=== PATIENT | female | born 1960 | race Caucasian/White ===

== ENCOUNTER 2017-10-28 19:09 | Inpatient (IN) | payer OTHER ==
[~2017-10-28] VITALS: Ht 154.9 cm; Wt 78.9 kg
[~2017-10-28 19:09] MED LIST: Z.0.ATENOLOL50 MG PO
[2017-10-28] MEDS ORDERED: SODIUM CHLORIDE 0.9% 1000ML 1,000 ML IV STA (19:22)
[2017-10-28] MEDS ORDERED: MORPHINE SULFATE 4 MG/ML SYR IV STA (19:22)
[2017-10-28] MEDS ORDERED: ONDANSETRON HCL INJ 2 MG/ML VIAL IV STA (19:22)
[2017-10-28] MEDS ORDERED: MORPHINE SULFATE 2 MG/ML SYR ONE (19:57)
[2017-10-28 19:59] LABS: BASOPHILS # (AUTO) 0.1 (0.0-0.1); BASOPHILS % 0.6 % (0.0-1.0); EOSINOPHILS # (AUTO) 0.1 (0.0-0.4); EOSINOPHILS % 0.4 % (0.0-6.0); HEMOGLOBIN 12.4 g/dL (12.0-16.0); LYMPHOCYTES # (AUTO) 1.5 (1.0-3.2); LYMPHOCYTES % 6.8 % (18.0-39.1); MEAN CORPUSCULAR HEMOGLOBIN 26.3 pg (28-32); MEAN CORPUSCULAR HGB CONC 33.5 g/dL (31-35); MEAN CORPUSCULAR VOLUME 78.6 fL (81-99); MONOCYTES # (AUTO) 1.8 (0.2-0.8); MONOCYTES % 8.3 % (4.4-11.3); NEUTROPHILS # (AUTO) 17.9 (2.1-6.9); NEUTROPHILS % 80.8 % (38.7-80.0); PLATELET COUNT 458 x10e3/uL (140-360); RED BLOOD COUNT 4.71 x10e6/uL (3.6-5.1)
[2017-10-28 20:00] LABS: BILIRUBIN,URINE 1+ (NEGATIVE); KETONES,URINE 1+ (NEGATIVE); LEUKOCYTE ESTERASE ,URINE 1+ (NEGATIVE); URINE UROBILINOGEN 4 mg/dL (0.2 - 1)
[2017-10-28 20:02] LABS: CLARITY,URINE SL CLOUDY (CLEAR); COLOR,URINE AMBER (YELLOW); NITRITE,URINE NEGATIVE (NEGATIVE); PROTEIN,URINE DIPSTICK 2+ (NEGATIVE)
[2017-10-28 20:13] LABS: BACTERIA,URINE MODERATE /HPF; EPITHELIAL CELLS,URINE FEW /LPF
[2017-10-28 20:16] LABS: ALANINE AMINOTRANSFERASE 11 IU/L (0-55); ALBUMIN/GLOBULIN RATIO 0.8 (0.8-2.0); ALKALINE PHOSPHATASE 94 IU/L (40-150); ANION GAP 15.4 mmol/L (8-16); BLOOD UREA NITROGEN 10 mg/dL (7-26); BUN/CREATININE RATIO 14 (6-25); CALCIUM 9.5 mg/dL (8.4-10.2); CARBON DIOXIDE 24 mmol/L (22-29); CHLORIDE 98 mmol/L (98-107); CREATININE, SERUM 0.73 mg/dL (0.57-1.11); EST GLOMERULAR FILTRATION RATE > 60 ML/MIN (60-); GLUCOSE 150 mg/dL (74-118); LIPASE 62 U/L (8-78); SODIUM 135 mmol/L (136-145)
[2017-10-28 20:18] LABS: POTASSIUM 2.4 mmol/L (3.5-5.1)
[2017-10-28] MEDS ORDERED: LEVOFLOXACIN 500MG/D5W 100ML 100 ML IV SCH (20:27)
[2017-10-28] MEDS ORDERED: METRONIDAZOLE 500MG/NS 100ML 100 ML IV STA (20:27)
--- NOTE | 2017-10-28 21:06 | Diagnostic Imaging Report ---
EXAM: CT Abdomen and Pelvis WITH contrast INDICATION: Abdominal pain. Fever. Diarrhea. COMPARISON: None. TECHNIQUE: Abdomen and pelvis were scanned utilizing a multidetector helical scanner from the lung base to the pubic symphysis after administration of IV contrast. Coronal and sagittal reformations were obtained. Routine protocol was performed. Scan was performed when during portal venous phase. IV CONTRAST: 100 mL of Isovue 370 ORAL CONTRAST: Water COMPLICATIONS: None RADIATION DOSE: Total DLP: 562.72 mGy*cm Estimated effective dose: (DLP x 0.015 x size factor) mSv CTDIvol has been reviewed. It is below the limits set by the Radiation Protocol Committee (RPC). FINDINGS: LINES and TUBES: None. LOWER THORAX: Unremarkable HEPATOBILIARY: 1.7 x 2.9 cm bilobed cyst in the segment 3 of the liver. No biliary ductal dilation. GALLBLADDER: There are cholecystectomy clips. SPLEEN: Mild splenomegaly measuring 14.1 cm in craniocaudad dimension. PANCREAS: No focal masses or ductal dilatation. ADRENALS: No adrenal nodules KIDNEYS/URETERS: Kidneys enhance symmetrically. No hydronephrosis. No cystic or solid mass lesions. No stones. GI TRACT: Winn colitis with wall thickening and pericolonic fat stranding worse in the transverse colon and ascending colon. Terminal ileum is spared. Questionable appendix is visualized and normal. PELVIC ORGANS/BLADDER: Bilateral tubal ligation clips. LYMPH NODES: No lymphadenopathy. VESSELS: Unremarkable. PERITONEUM / RETROPERITONEUM: Small amount of free fluid in the deep pelvis. BONES: Severe disc space narrowing at L5-S1. SOFT TISSUES: Unremarkable. IMPRESSION: 1. Pancolitis with sparing of the small bowel loops. This may be infectious versus inflammatory. 2. Mild splenomegaly. Signed by: Dr. Eddie Molina M.D. on 10/28/2017 9:03 PM
[2017-10-28] MEDS ORDERED: POTASSIUM CHLORIDE 20MEQ/100ML 100 ML IV SCH (21:12)
[2017-10-28 21:15] LABS: BAND NEUTROPHILS % (MANUAL) 3 %; EOSINOPHILS % (MANUAL) 1 % (0-7); HYPOCHROMASIA SLIGHT; LYMPHOCYTES % (MANUAL) 8 % (19-48); METAMYELOCYTES % (MANUAL) 1 % (0-0); MONOCYTES % (MANUAL) 8 % (3.4-9.0); MYELOCYTES % (MANUAL) 2 % (0-0); NEUTROPHILS % (MANUAL) 77 % (40-74); PLATELET ESTIMATE SLIGHTLY INCREASED; RBC MORPHOLOGY COMMENT NORMAL
[2017-10-28] MEDS ORDERED: ACETAMINOPHEN 1000 MG/100 ML IV PRN (21:15)
[2017-10-28] MEDS ORDERED: LEVOFLOXACIN 500MG/D5W 100ML IV SCH (21:15)
[2017-10-28] MEDS ORDERED: MORPHINE SULFATE 2 MG/ML SYR IV PRN (21:15)
[2017-10-28] MEDS ORDERED: SODIUM CHLORIDE 0.9% 50ML 50 ML ONE (21:35)
[2017-10-28] MEDS ORDERED: IOPAMIDOL 370 MG/ML 200 ML INFUS..BTL INJ ONE (21:35)
[2017-10-28] MEDS ORDERED: METRONIDAZOLE 500MG/NS 100ML 100 ML IV SCH (21:45)
[2017-10-28] MEDS ORDERED: KCL 20MEQ/.9 SOD CHL 1,000 ML IV ONE (21:52)
[2017-10-28] MEDS: POTASSIUM CHLORIDE 20 MEQ in SODIUM CHLORIDE 0.9% 1000ML 1,000 ML IV SCH (23:20)
--- OUTSIDE RECORDS SUMMARY | 2017-10-28 23:31 | XMS REPORT ---
Author Author [facility] Address Unknown Phone Unavailable Care Team Providers Care Stock Raiser Name Role Phone AMANDALISA Unavailable Unavailable Problems This patient has no known problems. Allergies, Adverse Reactions, Alerts This patient has no known allergies or adverse reactions. Medications This patient has no known medications. Results Test Description Test Time Test Comments Text Results Atomic Results Result Comments CT ABDOMEN/PELVIS W [place] [id number] Patient Name: MINDI FLORENTINO MR #: [id number] : 1960 Age/Sex: 56/F Req #: [id number] Adm Physician: Ordered by: LISA TORRES SASH STICKER Report #: [id number] Location: ER Room/Bed: Procedure: [id number] CT/CT ABDOMEN/PELVIS W Exam Date: 10/28/17 Exam Time: 2019 REPORT STATUS: Signed EXAM: CT Abdomen and Pelvis WITH contrast INDICATION: Abdominal pain. Fever. Diarrhea. COMPARISON: None. TECHNIQUE: Abdomen and pelvis were scanned utilizing a multidetector helical scanner from the lung base to the pubic symphysis after administration of IV contrast. Coronal and sagittal reformations were obtained. Routine protocol was performed. Scan was performed when during portal venous phase. IV CONTRAST: 100 mL of Isovue 370 ORAL CONTRAST: Water COMPLICATIONS: None RADIATION DOSE: Total DLP: 562.72 mGy*cm Estimated effective dose: (DLP x 0.015 x size factor) mSv CTDIvol has been reviewed. It is below the limits set by the Radiation Protocol Committee (RPC). FINDINGS: LINES and TUBES: None. LOWER THORAX: Unremarkable HEPATOBILIARY: 1.7 x 2.9 cm bilobed cyst in the segment 3 of the liver. No biliary ductal dilation. GALLBLADDER: There are cholecystectomy clips. SPLEEN: Mild splenomegaly measuring 14.1 cm in craniocaudad dimension. PANCREAS: No focal masses or ductal dilatation. ADRENALS: No adrenal nodules KIDNEYS/URETERS: Kidneys enhance symmetrically. No hydronephrosis. No cystic or solid mass lesions. No stones. GI TRACT: Winn colitis with wall thickening and pericolonic fat stranding worse in the transverse colon and ascending colon. Terminal ileum is spared. Questionable appendix is visualized and normal. PELVIC ORGANS/BLADDER: Bilateral tubal ligation clips. LYMPH NODES: No lymphadenopathy. VESSELS: Unremarkable. PERITONEUM / RETROPERITONEUM: Small amount of free fluid in the deep pelvis. BONES: Severe disc space narrowing at L5-S1. SOFT TISSUES: Unremarkable. IMPRESSION: 1. Pancolitis with sparing of the small bowel loops. This may be infectious versus inflammatory. 2. Mild splenomegaly. Signed by: Dr. Leatha Molina M.D. on 10/28/2017 9:03 PM Dictated By: LEATHA MOLINA MD 02 Transcribed By: NILDA on 10/28/172102 COPY TO: LISA TORRES NP
[2017-10-28] MEDS: LEVOFLOXACIN 500MG/D5W 100ML 100 ML IV SCH (23:32)
[2017-10-29] MEDS ORDERED: METRONIDAZOLE 500MG/NS 100ML 100 ML IV SCH
[2017-10-29] MEDS ORDERED: FENOFIBRATE145 MG PO (00:23)
[2017-10-29] MEDS ORDERED: BENTYL PO (00:23)
[2017-10-29] MEDS ORDERED: SERTRALINE HCL50 MG PO (00:23)
[2017-10-29] MEDS ORDERED: NITROFURANTOIN100 MG PO (00:23)
[2017-10-29] MEDS ORDERED: ULTRAM50 MG PO (00:23)
[2017-10-29] MEDS ORDERED: NORCO 10-325 T1 EACH PO (00:23)
[2017-10-29] MEDS ORDERED: HYDROXYZINE HCL25 MG PO (00:23)
[2017-10-29] MEDS ORDERED: NEXIUM20 MG PO (00:23)
[2017-10-29] MEDS ORDERED: METOPROLOL SUCC50 MG PO (00:23)
[2017-10-29] MEDS ORDERED: ZOLPIDEM TARTRA10 MG PO (00:23)
[2017-10-29] MEDS ORDERED: OXYBUTYNIN CHLOR5 MG PO (00:23)
[2017-10-29] MEDS ORDERED: BENTYL10 MG/1 ML IV (00:23)
[2017-10-29] MEDS ORDERED: CYMBALTA30 MG PO (00:23)
[2017-10-29] MEDS ORDERED: VITAMIN D1000 UNI1 PO (00:23)
[2017-10-29] MEDS ORDERED: LYRICA150 MG PO (00:23)
[2017-10-29] MEDS: IBUPROFEN 600 MG TAB PO PRN ×4 (00:32→22:10)
[2017-10-29] MEDS: METRONIDAZOLE 500MG/NS 100ML 100 ML IV SCH ×4 (00:32→23:01)
[2017-10-29] MEDS: HYDROMORPHONE 1MG/1ML INJ IV PRN ×5 (00:32→23:01)
[2017-10-29] MEDS: KCL 20MEQ/.9 SOD CHL 1,000 ML IV SCH ×3 (01:30→21:32)
[2017-10-29 05:49] LABS: BASOPHILS # (AUTO) 0.1 (0.0-0.1); BASOPHILS % 0.5 % (0.0-1.0); EOSINOPHILS # (AUTO) 0.3 (0.0-0.4); EOSINOPHILS % 1.5 % (0.0-6.0); HEMATOCRIT 30.9 % (34.2-44.1); HEMOGLOBIN 10.2 g/dL (12.0-16.0); LYMPHOCYTES # (AUTO) 1.9 (1.0-3.2); LYMPHOCYTES % 11.5 % (18.0-39.1); MEAN CORPUSCULAR HEMOGLOBIN 26.5 pg (28-32); MEAN CORPUSCULAR VOLUME 80.3 fL (81-99); MONOCYTES # (AUTO) 1.7 (0.2-0.8); MONOCYTES % 10.3 % (4.4-11.3); NEUTROPHILS % 71.4 % (38.7-80.0); PLATELET COUNT 311 x10e3/uL (140-360); RED BLOOD COUNT 3.85 x10e6/uL (3.6-5.1); RED CELL DISTRIBUTION WIDTH 14.2 % (11.7-14.4)
[2017-10-29 06:11] LABS: ALANINE AMINOTRANSFERASE 8 IU/L (0-55); ALBUMIN 2.3 g/dL (3.5-5.0); ALBUMIN/GLOBULIN RATIO 0.8 (0.8-2.0); ALKALINE PHOSPHATASE 69 IU/L (40-150); ANION GAP 11.6 mmol/L (8-16); BLOOD UREA NITROGEN 8 mg/dL (7-26); BUN/CREATININE RATIO 11 (6-25); CALCIUM 8.4 mg/dL (8.4-10.2); CARBON DIOXIDE 23 mmol/L (22-29); CHLORIDE 105 mmol/L (98-107); EST GLOMERULAR FILTRATION RATE > 60 ML/MIN (60-); GLUCOSE 99 mg/dL (74-118); SODIUM 137 mmol/L (136-145)
[2017-10-29 06:20] LABS: POTASSIUM 2.6 mmol/L (3.5-5.1)
[2017-10-29] MEDS ORDERED: POTASSIUM CHLORIDE 20MEQ/100ML 100 ML IV STA (06:20)
[2017-10-29] MEDS: POTASSIUM CHLORIDE 20 MEQ in SODIUM CHLORIDE 0.9% 1000ML 1,000 ML IV SCH (06:47)
[2017-10-29 08:45] VITALS: BP 177/81
[2017-10-29 10:06] VITALS: BP 177/81
[2017-10-29] MEDS: ONDANSETRON HCL INJ 2 MG/ML VIAL IV PRN ×3 (10:57→21:31)
[2017-10-29 11:28] VITALS: BP 189/90
[2017-10-29 11:39] LABS: BAND NEUTROPHILS % (MANUAL) 2 %; EOSINOPHILS % (MANUAL) 1 % (0-7); LYMPHOCYTES % (MANUAL) 21 % (19-48); MONOCYTES % (MANUAL) 5 % (3.4-9.0); MYELOCYTES % (MANUAL) 1 % (0-0); NEUTROPHILS % (MANUAL) 69 % (40-74); PLATELET ESTIMATE ADEQUATE; PLATELET MORPHOLOGY COMMENT NORMAL; RBC MORPHOLOGY COMMENT NORMAL
[2017-10-29] MEDS ORDERED: ACETAMINOPHEN 325 MG TAB PO PRN (12:00)
[2017-10-29] MEDS ORDERED: SODIUM CHLORIDE 0.9% 1000ML 1,000 ML IV ONE ×2 (12:13→12:15)
[2017-10-29] MEDS ORDERED: SODIUM CHLORIDE 0.9% 1000ML 1,000 ML ONE (12:27)
[2017-10-29] MEDS: METOPROLOL SUCCINATE 50 MG TAB XL PO SCH ×2 (12:33→16:53)
[2017-10-29] MEDS ORDERED: POTASSIUM CHLORIDE 20 MEQ TAB CR PO ONE (12:45)
[2017-10-29 16:00] VITALS: BP 194/88
[2017-10-29] MEDS: ENOXAPARIN SOD INJ 40 MG/0.4 ML SYR SC SCH (16:53)
[2017-10-29 20:00] VITALS: BP 199/112
[2017-10-29] MEDS: LEVOFLOXACIN 500MG/D5W 100ML 100 ML IV SCH (21:32)
[2017-10-29] MEDS ORDERED: METOPROLOL SUCCINATE 50 MG TAB XL PO ONE (21:45)
[2017-10-29] MEDS ORDERED: NIFEDIPINE CR 30 MG TAB PO ONE (22:15)
[2017-10-29] MEDS: NIFEDIPINE CR 30 MG TAB PO SCH (22:30)
[2017-10-30] VITALS: BP 165/71
[2017-10-30 04:00] VITALS: BP 146/66
[2017-10-30] MEDS: ONDANSETRON HCL INJ 2 MG/ML VIAL IV PRN ×4 (05:30→20:56)
[2017-10-30] MEDS: HYDROMORPHONE 1MG/1ML INJ IV PRN ×4 (05:30→20:55)
[2017-10-30] MEDS: KCL 20MEQ/.9 SOD CHL 1,000 ML IV SCH ×3 (05:56→20:54)
[2017-10-30] MEDS: METRONIDAZOLE 500MG/NS 100ML 100 ML IV SCH ×3 (07:32→23:30)
[2017-10-30 08:00] VITALS: BP 121/58
[2017-10-30 08:24] LABS: BASOPHILS # (AUTO) 0.1 (0.0-0.1); BASOPHILS % 0.3 % (0.0-1.0); EOSINOPHILS # (AUTO) 0.5 (0.0-0.4); EOSINOPHILS % 1.4 % (0.0-6.0); HEMOGLOBIN 11.7 g/dL (12.0-16.0); LYMPHOCYTES # (AUTO) 2.7 (1.0-3.2); MEAN CORPUSCULAR HEMOGLOBIN 26.2 pg (28-32); MEAN CORPUSCULAR HGB CONC 32.5 g/dL (31-35); MEAN CORPUSCULAR VOLUME 80.7 fL (81-99); MONOCYTES # (AUTO) 2.1 (0.2-0.8); MONOCYTES % 6.1 % (4.4-11.3); NEUTROPHILS # (AUTO) 27.2 (2.1-6.9); NEUTROPHILS % 80.8 % (38.7-80.0); PLATELET COUNT 485 x10e3/uL (140-360); RED BLOOD COUNT 4.46 x10e6/uL (3.6-5.1); RED CELL DISTRIBUTION WIDTH 14.6 % (11.7-14.4)
[2017-10-30 08:56] LABS: ANION GAP 14.6 mmol/L (8-16); BLOOD UREA NITROGEN 6 mg/dL (7-26); BUN/CREATININE RATIO 10 (6-25); CALCIUM 9.1 mg/dL (8.4-10.2); CARBON DIOXIDE 24 mmol/L (22-29); CHLORIDE 103 mmol/L (98-107); EST GLOMERULAR FILTRATION RATE > 60 ML/MIN (60-); GLUCOSE 92 mg/dL (74-118); MAGNESIUM 1.6 MG/DL (1.3-2.1); SODIUM 139 mmol/L (136-145)
[2017-10-30] MEDS: METOPROLOL SUCCINATE 50 MG TAB XL PO SCH ×2 (09:02→16:58)
[2017-10-30 09:32] LABS: POTASSIUM 2.6 mmol/L (3.5-5.1)
[2017-10-30] MEDS ORDERED: POTASSIUM CHLORIDE 20 MEQ TAB CR PO ONE ×2 (10:30→11:30)
[2017-10-30 12:00] VITALS: BP 131/58
[2017-10-30 13:47] LABS: BAND NEUTROPHILS % (MANUAL) 18 %; EOSINOPHILS % (MANUAL) 2 % (0-7); LYMPHOCYTES % (MANUAL) 14 % (19-48); MONOCYTES % (MANUAL) 3 % (3.4-9.0); NEUTROPHILS % (MANUAL) 63 % (40-74)
[2017-10-30 13:48] LABS: PLATELET ESTIMATE ADEQUATE; PLATELET MORPHOLOGY COMMENT NORMAL; RBC MORPHOLOGY COMMENT NORMAL
[2017-10-30 16:00] VITALS: BP 131/74
[2017-10-30] MEDS: ENOXAPARIN SOD INJ 40 MG/0.4 ML SYR SC SCH (16:58)
[2017-10-30 20:00] VITALS: BP 146/66
[2017-10-30] MEDS: NIFEDIPINE CR 30 MG TAB PO SCH (20:54)
[2017-10-30] MEDS: LEVOFLOXACIN 500MG/D5W 100ML 100 ML IV SCH (20:55)
--- NOTE | 2017-10-30 23:47 | Progress Note ---
DATE: October 30, 2017 PULMONARY MEDICINE PROGRESS NOTE This is coverage for Dr. Palm. SUBJECTIVE: Patient complained of having more diarrhea. Room air FiO2. She is on IV fluids 100 mL an hour with 20 mEq of potassium per liter in bag. She is still little bit weak. She has lower abdominal pain. Blood culture, still no growth today times 24 hours and urine culture, no growth today times 24 hours. White count still critical high and potassium critical low. REVIEW OF SYSTEMS: No bleeding, no headaches. OBJECTIVE: VITAL SIGNS: Afebrile, vital signs noted per electronic record. GENERAL: In no acute distress, alert and calm. HEENT: Normocephalic, atraumatic. NECK: Supple. Throat midline. LUNGS: Bilateral air entry, clear. CARDIOVASCULAR: S1, S2. No murmurs, rubs, or gallops. ABDOMEN: Soft, but she is mildly in discomfort throughout the abdomen to touch. INTEGUMENT: No purpura, no rash. EXTREMITIES: No clubbing, no cyanosis, there is no edema. LABS: 2.6 potassium, 0.6 creatinine. 33 white count, 36 hematocrit, 485,000 platelets. IMPRESSION AND PLAN: 1. Pancolitis per computerized tomography scan. Concern for Clostridium difficile infection. 2. Mild splenomegaly. 3. Gastroesophageal reflux disease. 4. Irritable bowel syndrome. 5. Depression, fibromyalgia. 6. Hypertension. 7. Chronic back pain. 8. Critical hypokalemia. 9. Severe leukocytosis. 10. Recurrent emesis, slightly improved. Increase diet slightly to full liquids. Continue intravenous fluid supplement. Await Clostridium difficile assay. Continue antibiotics including Clostridium difficile coverage for now. Deep venous thrombosis prophylaxis on. Aggressively give potassium. Job#: [id number]
[2017-10-31] VITALS (7 sets, daily range): BP systolic 125–158; BP diastolic 65–69
[2017-10-31] MEDS: VANCOMYCIN 250MG/5ML ORAL SOLN PO SCH ×4 (00:38→18:19)
[2017-10-31] MEDS: KCL 20MEQ/.9 SOD CHL 1,000 ML IV SCH ×2 (05:44→14:12)
[2017-10-31] MEDS: ONDANSETRON HCL INJ 2 MG/ML VIAL IV PRN ×3 (05:50→18:19)
[2017-10-31] MEDS: HYDROMORPHONE 1MG/1ML INJ IV PRN ×3 (05:50→21:59)
[2017-10-31 06:59] LABS: BASOPHILS # (AUTO) 0.1 (0.0-0.1); BASOPHILS % 0.7 % (0.0-1.0); EOSINOPHILS # (AUTO) 0.3 (0.0-0.4); EOSINOPHILS % 1.7 % (0.0-6.0); HEMATOCRIT 28.8 % (34.2-44.1); HEMOGLOBIN 9.4 g/dL (12.0-16.0); LYMPHOCYTES # (AUTO) 1.8 (1.0-3.2); LYMPHOCYTES % 9.4 % (18.0-39.1); MEAN CORPUSCULAR HEMOGLOBIN 26.6 pg (28-32); MEAN CORPUSCULAR HGB CONC 32.6 g/dL (31-35); MEAN CORPUSCULAR VOLUME 81.6 fL (81-99); MONOCYTES # (AUTO) 1.1 (0.2-0.8); MONOCYTES % 5.5 % (4.4-11.3); NEUTROPHILS # (AUTO) 14.8 (2.1-6.9); NEUTROPHILS % 76.6 % (38.7-80.0); PLATELET COUNT 376 x10e3/uL (140-360); RED BLOOD COUNT 3.53 x10e6/uL (3.6-5.1); RED CELL DISTRIBUTION WIDTH 14.6 % (11.7-14.4)
[2017-10-31 07:40] LABS: ALANINE AMINOTRANSFERASE 10 IU/L (0-55); ALBUMIN 2.3 g/dL (3.5-5.0); ALBUMIN/GLOBULIN RATIO 0.8 (0.8-2.0); ALKALINE PHOSPHATASE 80 IU/L (40-150); ANION GAP 12.1 mmol/L (8-16); BLOOD UREA NITROGEN 6 mg/dL (7-26); BUN/CREATININE RATIO 10 (6-25); CALCIUM 8.5 mg/dL (8.4-10.2); CARBON DIOXIDE 23 mmol/L (22-29); CHLORIDE 108 mmol/L (98-107); CREATININE, SERUM 0.59 mg/dL (0.57-1.11); EST GLOMERULAR FILTRATION RATE > 60 ML/MIN (60-); GLUCOSE 108 mg/dL (74-118); MAGNESIUM 1.5 MG/DL (1.3-2.1); POTASSIUM 3.1 mmol/L (3.5-5.1); SODIUM 140 mmol/L (136-145)
[2017-10-31] MEDS: METRONIDAZOLE 500MG/NS 100ML 100 ML IV SCH ×3 (07:50→23:00)
[2017-10-31] MEDS: METOPROLOL SUCCINATE 50 MG TAB XL PO SCH ×2 (09:19→17:26)
[2017-10-31 14:15] LABS: ANISOCYTOSIS SLIGHT; HYPOCHROMASIA SLIGHT; LYMPHOCYTES % (MANUAL) 11 % (19-48); MONOCYTES % (MANUAL) 9 % (3.4-9.0); NEUTROPHILS % (MANUAL) 78 % (40-74); PROMYELOCYTES % (MANUAL) 1 % (0-0)
[2017-10-31 14:16] LABS: PLATELET ESTIMATE ADEQUATE; PLATELET MORPHOLOGY COMMENT NORMAL; RBC MORPHOLOGY COMMENT NORMAL
[2017-10-31] MEDS: ENOXAPARIN SOD INJ 40 MG/0.4 ML SYR SC SCH (17:26)
[2017-10-31] MEDS ORDERED: IBUPROFEN 400 MG TAB PO PRN (21:45)
[2017-10-31] MEDS: NIFEDIPINE CR 30 MG TAB PO SCH (21:47)
--- NOTE | 2017-10-31 22:13 | Progress Note ---
DATE: October 31, 2017 INTERNAL MEDICINE PROGRESS NOTE SUBJECTIVE: Ms. Sam was seen and examined at bedside. She is still having a few loose stools. She is having stable pain in the abdomen. She is eating small amounts better than yesterday. C. difficile assay came back as positive. She is still on IV fluids at 100 mL per hour. REVIEW OF SYSTEMS: No bleeding, no rash. OBJECTIVE VITAL SIGNS: Afebrile, vital signs noted per electronic record. GENERAL: In no acute distress, alert and calm. HEENT: Normocephalic, atraumatic. NECK: Supple. Throat midline. LUNGS: Bilateral air entry, clear. CARDIOVASCULAR: S1, S2. No murmurs, rubs or gallops. ABDOMEN: Soft, discomfort, but not tender. EXTREMITIES: No clubbing, no cyanosis, no edema. INTEGUMENT: No rash, no purpura. LABS: Potassium 3.1, bicarbonate 23, BUN 6, creatinine 0.6. White count 19, platelets 376,000, hematocrit 29. IMPRESSIONS AND PLAN 1. Clostridium difficile colitis. 2. Severe leukocytosis. 3. Anemia. Decreased hemoglobin and hematocrit today. 4. Hypokalemia. 5. Severe hypoalbuminemia. 6. Gastroesophageal reflux disease, irritable bowel syndrome , depression, hypertension, chronic back pain. Continue Flagyl and vancomycin for now. Will stop Levaquin. Pain management as shown will be continued, but will titrate down on the NSAIDs. Repeat blood count tomorrow including further hematocrit and take more potassium. Job#: [id number] CQ
[2017-10-31] MEDS ORDERED: POTASSIUM CHLORIDE 20 MEQ TAB CR PO ONE (22:15)
[2017-11-01] VITALS (8 sets, daily range): BP systolic 148–164; BP diastolic 65–74
[2017-11-01] MEDS: KCL 20MEQ/.9 SOD CHL 1,000 ML IV SCH ×4 (04:17→22:00)
[2017-11-01] MEDS: ONDANSETRON HCL INJ 2 MG/ML VIAL IV PRN ×4 (06:02→15:20)
[2017-11-01] MEDS: VANCOMYCIN 250MG/5ML ORAL SOLN PO SCH ×5 (06:02→23:57)
[2017-11-01 07:04] LABS: BASOPHILS # (AUTO) 0.1 (0.0-0.1); BASOPHILS % 0.4 % (0.0-1.0); EOSINOPHILS # (AUTO) 0.3 (0.0-0.4); EOSINOPHILS % 1.8 % (0.0-6.0); HEMATOCRIT 30.3 % (34.2-44.1); HEMOGLOBIN 9.7 g/dL (12.0-16.0); LYMPHOCYTES # (AUTO) 2.1 (1.0-3.2); LYMPHOCYTES % 14.8 % (18.0-39.1); MEAN CORPUSCULAR HEMOGLOBIN 26.3 pg (28-32); MEAN CORPUSCULAR VOLUME 82.1 fL (81-99); MONOCYTES % 6.8 % (4.4-11.3); NEUTROPHILS # (AUTO) 9.2 (2.1-6.9); PLATELET COUNT 408 x10e3/uL (140-360); RED BLOOD COUNT 3.69 x10e6/uL (3.6-5.1); RED CELL DISTRIBUTION WIDTH 14.6 % (11.7-14.4)
[2017-11-01 07:30] LABS: ANION GAP 10.1 mmol/L (8-16); BLOOD UREA NITROGEN 7 mg/dL (7-26); BUN/CREATININE RATIO 12 (6-25); CALCIUM 8.7 mg/dL (8.4-10.2); CARBON DIOXIDE 24 mmol/L (22-29); CHLORIDE 110 mmol/L (98-107); CREATININE, SERUM 0.59 mg/dL (0.57-1.11); EST GLOMERULAR FILTRATION RATE > 60 ML/MIN (60-); GLUCOSE 87 mg/dL (74-118); MAGNESIUM 1.5 MG/DL (1.3-2.1); POTASSIUM 3.1 mmol/L (3.5-5.1); SODIUM 141 mmol/L (136-145)
[2017-11-01] MEDS: METRONIDAZOLE 500MG/NS 100ML 100 ML IV SCH ×3 (07:53→22:00)
[2017-11-01] MEDS: METOPROLOL SUCCINATE 50 MG TAB XL PO SCH ×2 (09:11→17:51)
[2017-11-01 09:59] LABS: BAND NEUTROPHILS % (MANUAL) 5 %; EOSINOPHILS % (MANUAL) 2 % (0-7); LYMPHOCYTES % (MANUAL) 11 % (19-48); MONOCYTES % (MANUAL) 8 % (3.4-9.0); NEUTROPHILS % (MANUAL) 72 % (40-74); NUCLEATED RED BLOOD CELLS 1
[2017-11-01 10:14] LABS: ANISOCYTOSIS SLIGHT; HYPOCHROMASIA SLIGHT; PLATELET ESTIMATE SLIGHTLY DECREASED; PLATELET MORPHOLOGY COMMENT NORMAL; RBC MORPHOLOGY COMMENT NORMAL
[2017-11-01] MEDS: ENOXAPARIN SOD INJ 40 MG/0.4 ML SYR SC SCH (17:51)
[2017-11-01] MEDS: NIFEDIPINE CR 30 MG TAB PO SCH (21:54)
[2017-11-01] MEDS ORDERED: POTASSIUM CHLORIDE 20 MEQ TAB CR PO STA (22:03)
[2017-11-01] MEDS ORDERED: TRAMADOL HCL 50 MG TAB PO PRN (22:15)
[2017-11-01] MEDS ORDERED: HYDROCODONE/APAP 10MG-325MG TAB PO PRN (22:15)
[2017-11-01] MEDS: PREGABALIN 75 MG CAP PO SCH (22:51)
--- NOTE | 2017-11-01 23:52 | Progress Note ---
DATE: November 01, 2017 INTERNAL MEDICINE PROGRESS NOTE SUBJECTIVE: Ms. Sam was seen and examined at bedside. She continues to have slowly improving strength. Today, she is on IV fluids at 125 mL per hour with some potassium added to it. She continues to feel stronger. She is having slightly more pain. Less diarrhea. White count is improving. REVIEW OF SYSTEMS: No headaches, no ear pain. OBJECTIVE: VITAL SIGNS: Afebrile, vital signs noted per electronic record. GENERAL: In no acute distress, alert and calm. HEENT: Normocephalic, atraumatic. NECK: Supple. Throat midline. LUNGS: Bilateral air entry, clear. CARDIOVASCULAR: S1, S2. No murmurs, rubs, or gallops. ABDOMEN: Soft, nontender. EXTREMITIES: No clubbing, no cyanosis, there is no edema. INTEGUMENT: No rash, no purpura. LABS: 3.1 potassium, 24 bicarbonate, 0.6 creatinine. 14 white count, 408,000 platelets, 30 hematocrit. IMPRESSION AND PLAN: 1. Hypokalemia. 2. Pancolitis, Clostridium difficile type. 3. Recent urinary tract infection. 4. Anemia. 5. Severe hypoalbuminemia. 6. Gastroesophageal reflux disease, irritable bowel syndrome, depression, hypertension, chronic back pain. Continue combined vancomycin and Flagyl for this severe infection. Give some more potassium today. Continue some intravenous hydration. Resume some of her medicines from home as she is getting stronger. Job#: [id number]
[2017-11-02] VITALS (8 sets, daily range): BP systolic 113–159; BP diastolic 59–68
[2017-11-02] MEDS: VANCOMYCIN 250MG/5ML ORAL SOLN PO SCH ×4 (06:02→23:54)
[2017-11-02] MEDS: ONDANSETRON HCL INJ 2 MG/ML VIAL IV PRN ×3 (06:03→11:37)
[2017-11-02 06:46] LABS: BASOPHILS # (AUTO) 0.1 (0.0-0.1); BASOPHILS % 0.4 % (0.0-1.0); EOSINOPHILS # (AUTO) 0.2 (0.0-0.4); EOSINOPHILS % 1.5 % (0.0-6.0); HEMATOCRIT 28.5 % (34.2-44.1); HEMOGLOBIN 9.2 g/dL (12.0-16.0); LYMPHOCYTES # (AUTO) 2.3 (1.0-3.2); LYMPHOCYTES % 18.5 % (18.0-39.1); MEAN CORPUSCULAR HEMOGLOBIN 26.6 pg (28-32); MEAN CORPUSCULAR HGB CONC 32.3 g/dL (31-35); MEAN CORPUSCULAR VOLUME 82.4 fL (81-99); MONOCYTES # (AUTO) 1.1 (0.2-0.8); MONOCYTES % 8.4 % (4.4-11.3); NEUTROPHILS # (AUTO) 7.7 (2.1-6.9); NEUTROPHILS % 60.9 % (38.7-80.0); PLATELET COUNT 358 x10e3/uL (140-360); RED BLOOD COUNT 3.46 x10e6/uL (3.6-5.1); RED CELL DISTRIBUTION WIDTH 14.7 % (11.7-14.4)
[2017-11-02 07:04] LABS: BLOOD UREA NITROGEN 6 mg/dL (7-26); BUN/CREATININE RATIO 10 (6-25); CALCIUM 8.6 mg/dL (8.4-10.2); CARBON DIOXIDE 22 mmol/L (22-29); CHLORIDE 111 mmol/L (98-107); EST GLOMERULAR FILTRATION RATE > 60 ML/MIN (60-); GLUCOSE 103 mg/dL (74-118); MAGNESIUM 1.6 MG/DL (1.3-2.1); SODIUM 140 mmol/L (136-145)
[2017-11-02] MEDS: PREGABALIN 75 MG CAP PO SCH ×2 (08:26→21:00)
[2017-11-02] MEDS: METRONIDAZOLE 500MG/NS 100ML 100 ML IV SCH ×3 (08:26→23:54)
[2017-11-02] MEDS: DULOXETINE HCL 30 MG DELAYED RELEASE PO SCH (08:26)
[2017-11-02] MEDS: ATENOLOL 50 MG TAB PO SCH (08:27)
[2017-11-02] MEDS: SERTRALINE HCL 50 MG TAB PO SCH (08:27)
[2017-11-02] MEDS: FENOFIBRATE 145 MG TAB PO SCH (08:27)
[2017-11-02 09:09] LABS: BAND NEUTROPHILS % (MANUAL) 3 %; EOSINOPHILS % (MANUAL) 2 % (0-7); LYMPHOCYTES % (MANUAL) 14 % (19-48); METAMYELOCYTES % (MANUAL) 1 % (0-0); MONOCYTES % (MANUAL) 3 % (3.4-9.0); NEUTROPHILS % (MANUAL) 77 % (40-74)
[2017-11-02 09:10] LABS: ANISOCYTOSIS SLIGHT; HYPOCHROMASIA SLIGHT; POIKILOCYTOSIS SLIGHT; RBC MORPHOLOGY COMMENT NORMAL
[2017-11-02 09:11] LABS: PLATELET ESTIMATE ADEQUATE; PLATELET MORPHOLOGY COMMENT NORMAL
[2017-11-02] MEDS: KCL 20MEQ/.9 SOD CHL 1,000 ML IV SCH (11:26)
[2017-11-02] MEDS: METOPROLOL SUCCINATE 50 MG TAB XL PO SCH ×2 (12:31→21:00)
[2017-11-02] MEDS: CHOLESTYRAMINE 4 GM PACKET PO SCH (17:14)
[2017-11-02] MEDS: ENOXAPARIN SOD INJ 40 MG/0.4 ML SYR SC SCH (17:14)
[2017-11-02] MEDS: NIFEDIPINE CR 30 MG TAB PO SCH (21:00)
[2017-11-02] MEDS ORDERED: ZOLPIDEM TARTRATE 10 MG TAB PO SCH (21:00)
[2017-11-03] VITALS: BP 142/64
[2017-11-03] MEDS ORDERED: VANCOMYCIN PO (02:13)
--- NOTE | 2017-11-03 02:59 | Progress Note ---
DATE: November 02, 2017 INTERNAL MEDICINE PROGRESS NOTE SUBJECTIVE: Ms. Sam was seen and examined at bedside. She continues to have diarrhea noted. She is eating better. She is on Questran stools as there has been some pain caused by this diarrhea. REVIEW OF SYSTEMS: No bleeding, no headaches. OBJECTIVE: VITAL SIGNS: Afebrile, vital signs noted per electronic record. GENERAL: In no acute distress, alert and calm. HEENT: Normocephalic, atraumatic. NECK: Supple. Throat midline. LUNGS: Bilateral air entry, few rare rhonchi. CARDIOVASCULAR: S1, S2. No murmurs, rubs, or gallops. ABDOMEN: Soft, nontender. EXTREMITIES: No clubbing, no cyanosis, there is no edema. INTEGUMENT: No rash, no purpura. LABS: 13 white count, 29 hematocrit, 358,000 platelets. 4.0 potassium, 6 BUN, 0.6 creatinine. IMPRESSION AND PLAN: 1. Severe Clostridium difficile colitis. 2. Mild splenomegaly. 3. Gastroesophageal reflux disease. 4. Irritable bowel syndrome. 5. Depression and fibromyalgia. 6. Hypertension. 7. Chronic back pain. 8. Recurrent emesis, resolving. We will recheck blood work tomorrow. If they continued to get better, will discuss with the patient regarding discharge planning. Patient is able to tolerate her diet now. I have notified her about the risks of recurrence of Clostridium difficile infection. Continue to allow her to mobilize. Continue oral nutrition. Job#: [id number]
[2017-11-03 04:00] VITALS: BP 142/65
[2017-11-03 05:39] VITALS: BP 142/65
[2017-11-03] MEDS: ONDANSETRON HCL INJ 2 MG/ML VIAL IV PRN ×3 (06:00→11:35)
[2017-11-03] MEDS: VANCOMYCIN 250MG/5ML ORAL SOLN PO SCH ×2 (06:00→11:35)
[2017-11-03 07:03] LABS: BASOPHILS # (AUTO) 0.2 (0.0-0.1); BASOPHILS % 1.1 % (0.0-1.0); EOSINOPHILS # (AUTO) 0.3 (0.0-0.4); EOSINOPHILS % 2.4 % (0.0-6.0); HEMATOCRIT 33.8 % (34.2-44.1); LYMPHOCYTES # (AUTO) 2.7 (1.0-3.2); LYMPHOCYTES % 19.4 % (18.0-39.1); MEAN CORPUSCULAR HEMOGLOBIN 26.5 pg (28-32); MEAN CORPUSCULAR HGB CONC 32.5 g/dL (31-35); MEAN CORPUSCULAR VOLUME 81.4 fL (81-99); MONOCYTES % 7.2 % (4.4-11.3); NEUTROPHILS # (AUTO) 8.5 (2.1-6.9); NEUTROPHILS % 61.1 % (38.7-80.0); PLATELET COUNT 447 x10e3/uL (140-360); RED BLOOD COUNT 4.15 x10e6/uL (3.6-5.1); RED CELL DISTRIBUTION WIDTH 14.7 % (11.7-14.4)
[2017-11-03 08:00] VITALS: BP 172/84
[2017-11-03] MEDS: DULOXETINE HCL 30 MG DELAYED RELEASE PO SCH (08:23)
[2017-11-03] MEDS: FENOFIBRATE 145 MG TAB PO SCH (08:23)
[2017-11-03] MEDS: ATENOLOL 50 MG TAB PO SCH (08:23)
[2017-11-03] MEDS: CHOLESTYRAMINE 4 GM PACKET PO SCH (08:23)
[2017-11-03] MEDS: METOPROLOL SUCCINATE 50 MG TAB XL PO SCH (08:23)
[2017-11-03] MEDS: METRONIDAZOLE 500MG/NS 100ML 100 ML IV SCH (08:23)
[2017-11-03] MEDS: PREGABALIN 75 MG CAP PO SCH (08:23)
[2017-11-03] MEDS: SERTRALINE HCL 50 MG TAB PO SCH (08:23)
[2017-11-03 12:00] VITALS: BP 127/59
[2017-11-03] MEDS ORDERED: CHOLESTYRAMINE P4 GM PO (12:12)
[2017-11-03] MEDS ORDERED: ZOFRAN4 MG PO (12:12)
--- NOTE | 2017-11-04 08:34 | Discharge Summary ---
PRIMARY DIAGNOSES 1. Pancolitis. 2. Clostridium difficile infection. SECONDARY DIAGNOSES 1. Diarrhea. 2. Neuropathy. 3. Hypertension. 4. Chronic pain. 5. Depression with anxiety features. DIET AT DISCHARGE: GI, bland. ACTIVITY AT DISCHARGE: As tolerated. FOLLOWUP: Will at Dr. Chepe Wong' office. HOSPITAL COURSE: Mrs. Sam was seen and examined at bedside. She has been on antibiotics for recurrent UTIs recently. She however developed bad abdominal pain, diarrhea, and nausea. Patient was found with significant hypokalemia. CAT scan shows pancolitis. C. difficile assay came back positive. She was already on Flagyl, but white count went up to 31,000 and therefore vancomycin was started. After further improvement steadily, we allowed the patient's discharge on oral vancomycin, antiemetics and other therapy. Greater than 30 minutes in direct care and coordination for this discharge. SANTOS BUNDY MD Job#: [id number]
== END 2017-11-03 13:39 | disposition home or self-care (01) | DRG 387 ==
LOC: ER 19:09 → ERHOLD 23:29 → MED/SURG3 10-29 07:30
PROVIDERS: ADMIT Internal Medicine; ATTEND Internal Medicine
DX: K51.00 Ulcerative (chronic) pancolitis without complications (principal); E88.09 Other disorders of plasma-protein metabolism, not elsewhere classified; I10 Essential (primary) hypertension; G62.9 Polyneuropathy, unspecified; R16.1 Splenomegaly, not elsewhere classified; F32.9 Major depressive disorder, single episode, unspecified; F41.9 Anxiety disorder, unspecified; G89.29 Other chronic pain; K21.9 Gastro-esophageal reflux disease without esophagitis; K58.9 Irritable bowel syndrome, unspecified; M79.7 Fibromyalgia; M54.9 Dorsalgia, unspecified; E87.6 Hypokalemia; D64.9 Anemia, unspecified; A04.72 Enterocolitis due to Clostridium difficile, not specified as recurrent
CPT/HCPCS: 36415; 74177; 80048; 80053; 81001; 83690; 83735; 85025; 87040; 87086; 87493; 96361; 96367; 96372; 99284; J1170; J1650; J1956; J2270; J2405; J3480; J7030; Q9967

== ENCOUNTER 2018-04-11 23:07 | Inpatient (IN) | payer OTHER ==
[~2018-04-11] VITALS: Ht 162.6 cm; Wt 78.9 kg
[~2018-04-11 23:07] MED LIST changes: +BENTYL PO; +BENTYL10 MG/1 ML IV; +CHOLESTYRAMINE P4 GM PO; +CYMBALTA30 MG PO; +FENOFIBRATE145 MG PO; +HYDROXYZINE HCL25 MG PO; +LYRICA150 MG PO; +METOPROLOL SUCC50 MG PO; +NEXIUM20 MG PO; +NITROFURANTOIN100 MG PO; +NORCO 10-325 T1 EACH PO; +OXYBUTYNIN CHLOR5 MG PO; +SERTRALINE HCL50 MG PO; +ULTRAM50 MG PO; +VANCOMYCIN PO; +VITAMIN D1000 UNI1 PO; +ZOFRAN4 MG PO; +ZOLPIDEM TARTRA10 MG PO
[2018-04-11] MEDS ORDERED: ONDANSETRON HCL INJ 2 MG/ML VIAL IV STA (23:18)
[2018-04-11] MEDS ORDERED: PANTOPRAZOLE 40 MG 10ML VIAL IV STA (23:21)
[2018-04-11] MEDS ORDERED: SODIUM CHLORIDE 0.9% 1000ML 1,000 ML IV ONE (23:30)
[2018-04-11 23:48] LABS: BASOPHILS # (AUTO) 0.1 (0.0-0.1); BASOPHILS % 0.5 % (0.0-1.0); EOSINOPHILS # (AUTO) 0.6 (0.0-0.4); EOSINOPHILS % 2.8 % (0.0-6.0); HEMATOCRIT 41.3 % (34.2-44.1); HEMOGLOBIN 13.4 g/dL (12.0-16.0); LYMPHOCYTES # (AUTO) 2.2 (1.0-3.2); MEAN CORPUSCULAR HEMOGLOBIN 26.2 pg (28-32); MEAN CORPUSCULAR HGB CONC 32.4 g/dL (31-35); MEAN CORPUSCULAR VOLUME 80.7 fL (81-99); MONOCYTES # (AUTO) 1.6 (0.2-0.8); MONOCYTES % 7.3 % (4.4-11.3); NEUTROPHILS # (AUTO) 17.5 (2.1-6.9); NEUTROPHILS % 79.1 % (38.7-80.0); PLATELET COUNT 646 x10e3/uL (140-360); RED BLOOD COUNT 5.12 x10e6/uL (3.6-5.1); RED CELL DISTRIBUTION WIDTH 13.6 % (11.7-14.4)
[2018-04-12] VITALS (7 sets, daily range): BP systolic 106–141; BP diastolic 52–70
[2018-04-12] LABS: CREATINE KINASE 28 IU/L (29-168)
[2018-04-12 00:02] LABS: ALANINE AMINOTRANSFERASE 8 IU/L (0-55); ALBUMIN/GLOBULIN RATIO 0.8 (0.8-2.0); ALKALINE PHOSPHATASE 77 IU/L (40-150); AMYLASE 35 U/L (25-125); ANION GAP 16.1 mmol/L (8-16); BLOOD UREA NITROGEN 10 mg/dL (7-26); BUN/CREATININE RATIO 12 (6-25); CALCIUM 9.5 mg/dL (8.4-10.2); CARBON DIOXIDE 21 mmol/L (22-29); CHLORIDE 102 mmol/L (98-107); CREATININE, SERUM 0.83 mg/dL (0.57-1.11); EST GLOMERULAR FILTRATION RATE > 60 ML/MIN (60-); GLUCOSE 151 mg/dL (74-118); LIPASE 11 U/L (8-78); POTASSIUM 3.1 mmol/L (3.5-5.1); SODIUM 136 mmol/L (136-145)
[2018-04-12] MEDS ORDERED: CYMBALTA60 MG PO (00:09)
[2018-04-12] MEDS ORDERED: HYDROMORPHONE 1MG/1ML INJ IV STA (00:34)
[2018-04-12] MEDS: VANCOMYCIN 250MG/5ML ORAL SOLN PO SCH ×4 (00:59→18:06)
[2018-04-12] MEDS: METRONIDAZOLE 500MG/NS 100ML 100 ML IV SCH ×4 (00:59→17:24)
[2018-04-12 01:34] LABS: BILIRUBIN,URINE 1+ (NEGATIVE); CLARITY,URINE CLOUDY (CLEAR); COLOR,URINE AMBER (YELLOW); KETONES,URINE NEGATIVE (NEGATIVE); LEUKOCYTE ESTERASE ,URINE 2+ (NEGATIVE); NITRITE,URINE POSITIVE (NEGATIVE); PROTEIN,URINE DIPSTICK 1+ (NEGATIVE); URINE UROBILINOGEN 1 mg/dL (0.2 - 1)
[2018-04-12 01:35] LABS: BACTERIA,URINE MANY /HPF; EPITHELIAL CELLS,URINE FEW /LPF; TRANSITIONAL EPI CELLS,URINE FEW; WBC,URINE (MAN) >50 /HPF (0-5)
--- NOTE | 2018-04-12 02:16 | Diagnostic Imaging Report ---
EXAM: CT Abdomen and Pelvis WITH contrast INDICATION: Abdominal pain COMPARISON: None. TECHNIQUE: Abdomen and pelvis were scanned utilizing a multidetector helical scanner from the lung base to the pubic symphysis after administration of IV contrast. Coronal and sagittal reformations were obtained. Routine protocol was performed. Scan was performed when during portal venous phase. IV CONTRAST: 100 mL of Isovue-370 ORAL CONTRAST: None RADIATION DOSE: Total DLP: 551.11 mGy*cm Estimated effective dose: (DLP x 0.015 x size factor) mSv COMPLICATIONS: None FINDINGS: LINES and TUBES: None. LOWER THORAX: Unremarkable HEPATOBILIARY: Focal hypodensity in the left lobe of the liver, segment 3 measuring 3 cm in diameter in maximum dimension is compatible with a simple cyst. No biliary ductal dilation. GALLBLADDER: There are cholecystectomy clips. SPLEEN: No splenomegaly. PANCREAS: No focal masses or ductal dilatation. ADRENALS: No adrenal nodules KIDNEYS/URETERS: Kidneys enhance symmetrically. No hydronephrosis. No cystic or solid mass lesions. No stones. GI TRACT: Diffuse circumferential thickening of the colon predominantly involving the transverse, descending, sigmoid colon and rectum compatible with colitis. Appendix is normal. PELVIC ORGANS/BLADDER: The uterus and bilateral ovaries are normal. There is a 3.6 cm solid right adnexal mass which may represent a subserosal fibroid. Bilateral fallopian tubal ligation clips present. LYMPH NODES: No lymphadenopathy. VESSELS: Unremarkable. PERITONEUM / RETROPERITONEUM: No free air or fluid. BONES: Degenerative changes at L5-S1 level SOFT TISSUES: Unremarkable. IMPRESSION: 1. Findings are compatible with acute colitis as described above. 2. Right lateral uterine fibroid is subserosal measuring 3.6 cm in diameter Signed by: Dr. Darek Durán M.D. on 04/12/2018 2:12 AM
[2018-04-12] MEDS: CEFTRIAXONE SOD 1 GM VIAL IV SCH ×2 (03:21→15:17)
[2018-04-12] MEDS: KCL 20MEQ/.9 SOD CHL 1,000 ML IV SCH ×3 (03:21→23:00)
[2018-04-12] MEDS: HYDROMORPHONE 1MG/1ML INJ IV PRN ×3 (04:10→15:18)
[2018-04-12] MEDS ORDERED: SODIUM CHLORIDE 0.9% 50ML 50 ML ONE (04:16)
[2018-04-12] MEDS ORDERED: IOPAMIDOL 370 MG/ML 200 ML INFUS..BTL INJ ONE (04:17)
[2018-04-12] MEDS ORDERED: SERTRALINE HCL50 MG PO (07:39)
[2018-04-12] MEDS ORDERED: DICYCLOMINE HCL20 MG PO (07:39)
[2018-04-12] MEDS ORDERED: HYDROCODON-ACE1 EAC9 PO (07:39)
[2018-04-12] MEDS ORDERED: ULTRAM50 MG PO (07:39)
[2018-04-12] MEDS ORDERED: PANTOPRAZOLE SOD 40 MG TABEC PO SCH (09:00)
[2018-04-12] MEDS ORDERED: ERGOCALCIFEROL 50,000 UNIT CAP PO SCH (09:00)
[2018-04-12] MEDS: ONDANSETRON HCL INJ 2 MG/ML VIAL IV PRN (09:10)
[2018-04-12 09:13] LABS: CHOL/HDL RATIO 5.3 (3.0-3.6)
[2018-04-12] MEDS: FENOFIBRATE 145 MG TAB PO SCH (09:56)
[2018-04-12] MEDS: PREGABALIN 75 MG CAP PO SCH ×2 (09:56→17:24)
[2018-04-12] MEDS: METOPROLOL SUCCINATE 50 MG TAB XL PO SCH (09:56)
[2018-04-12] MEDS: PROMETHAZINE 12.5MG/ NACL 0.9% 12.5 MG/50 ML BAG IV PRN (15:17)
--- NOTE | 2018-04-12 16:20 | History and Physical ---
PRIMARY CARE PHYSICIAN: Dr. Wong CHIEF COMPLAINT: Diarrhea. HISTORY OF PRESENT ILLNESS: This is a 57-year-old woman with a history of Clostridium difficile infection in October 2017, now developing diarrhea for 3 weeks, which has been constant daily and watery. She also had fever as high as 101.4, nausea and abdominal pain; therefore, she came to the hospital. PAST MEDICAL HISTORY 1. Hypertension. 2. Clostridium difficile infection, with diarrhea now, in October 2017. 3. Fibromyalgia. 4. Psoriasis. 5. Chronic pain syndrome. 6. Depression with anxiety features. 7. Pancolitis. PAST SURGICAL HISTORY 1. Tubal ligation. 2. Cholecystectomy. ALLERGIES: PER ELECTRONIC MEDICAL RECORD. FAMILY HISTORY/SOCIAL HISTORY: The patient has 3 children. No alcohol or illicits. MEDICATIONS: Per electronic medical record. REVIEW OF SYSTEMS: Denies any dizziness, chest pain, shortness of breath. Denies any headache, vision changes, leg pain. PHYSICAL EXAMINATION VITAL SIGNS: Have been reviewed. GENERAL: A tired-appearing woman resting in bed. HEENT: Anicteric. CARDIOVASCULAR: Normal S1 and S2. LUNGS: Moderate breath sounds. ABDOMEN: Soft, nondistended. She has diffuse tenderness in the abdomen. EXTREMITIES: No edema or calf tenderness. NEUROLOGIC: Alert and oriented times 3, moving all extremities. SKIN: Dry. PSYCHIATRIC: Flat affect. LABS: Reviewed. MEDICATIONS: Reviewed. ASSESSMENT: A 57-year-old woman. 1. Sepsis. 2. Acute colitis. 3. History of Clostridium difficile infection. 4. Uterine fibroids. 5. Urinary tract infection. 6. Metabolic acidosis. 7. Overweight state. 8. Hypertriglyceridemia. 9. Hyperglycemia. 10. Hypertension. 11. Hypokalemia. 12. Abdominal pain. PLAN 1. We will continue with Flagyl and/or vancomycin. 2. We will follow up Clostridium difficile testing. If positive for Clostridium difficile, she will need treatment for at least 2 to 3 weeks. She does have recurrent infection. 3. Obtain labs later today to reassess. 4. Continue rehydration. 5. Rest the bowel today with n.p.o. status and then start on liquid diet tomorrow. 6. Use SCDs for DVT and IV PPI in the setting of possible C. difficile infection. Job#: [id number]
[2018-04-12] MEDS: ZOLPIDEM TARTRATE 10 MG TAB PO SCH (21:45)
[2018-04-12] MEDS: SERTRALINE HCL 50 MG TAB PO SCH (21:45)
[2018-04-13] MEDS: METRONIDAZOLE 500MG/NS 100ML 100 ML IV SCH ×5 (00:10→23:36)
[2018-04-13] MEDS: VANCOMYCIN 250MG/5ML ORAL SOLN PO SCH ×5 (00:13→23:31)
[2018-04-13 00:39] VITALS: BP 137/69
[2018-04-13] MEDS: CEFTRIAXONE SOD 1 GM VIAL IV SCH ×2 (02:57→15:00)
[2018-04-13] MEDS: ONDANSETRON HCL INJ 2 MG/ML VIAL IV PRN (03:11)
[2018-04-13] MEDS: KCL 20MEQ/.9 SOD CHL 1,000 ML IV SCH ×3 (03:14→19:00)
[2018-04-13] MEDS: HYDROMORPHONE 1MG/1ML INJ IV PRN ×2 (03:14→15:45)
[2018-04-13 04:54] LABS: BASOPHILS # (AUTO) 0.1 (0.0-0.1); BASOPHILS % 0.3 % (0.0-1.0); EOSINOPHILS # (AUTO) 1.4 (0.0-0.4); EOSINOPHILS % 8.9 % (0.0-6.0); HEMATOCRIT 31.4 % (34.2-44.1); HEMOGLOBIN 10.3 g/dL (12.0-16.0); LYMPHOCYTES # (AUTO) 1.6 (1.0-3.2); LYMPHOCYTES % 10.3 % (18.0-39.1); MEAN CORPUSCULAR HEMOGLOBIN 26.9 pg (28-32); MEAN CORPUSCULAR HGB CONC 32.8 g/dL (31-35); MONOCYTES # (AUTO) 1.1 (0.2-0.8); MONOCYTES % 6.8 % (4.4-11.3); NEUTROPHILS # (AUTO) 11.5 (2.1-6.9); NEUTROPHILS % 73.3 % (38.7-80.0); PLATELET COUNT 347 x10e3/uL (140-360); RED BLOOD COUNT 3.83 x10e6/uL (3.6-5.1); RED CELL DISTRIBUTION WIDTH 13.7 % (11.7-14.4)
[2018-04-13 05:14] LABS: ALANINE AMINOTRANSFERASE 8 IU/L (0-55); ALBUMIN 2.5 g/dL (3.5-5.0); ALKALINE PHOSPHATASE 56 IU/L (40-150); ANION GAP 13.1 mmol/L (8-16); BLOOD UREA NITROGEN 5 mg/dL (7-26); BUN/CREATININE RATIO 8 (6-25); CALCIUM 8.5 mg/dL (8.4-10.2); CARBON DIOXIDE 21 mmol/L (22-29); CHLORIDE 108 mmol/L (98-107); CREATININE, SERUM 0.65 mg/dL (0.57-1.11); EST GLOMERULAR FILTRATION RATE > 60 ML/MIN (60-); GLUCOSE 104 mg/dL (74-118); POTASSIUM 3.1 mmol/L (3.5-5.1); SODIUM 139 mmol/L (136-145)
[2018-04-13 05:32] VITALS: BP 120/58
[2018-04-13 06:36] LABS: MAGNESIUM 1.5 MG/DL (1.3-2.1)
[2018-04-13 08:18] VITALS: BP 121/58
[2018-04-13] MEDS ORDERED: ACETAMINOPHEN 325 MG TAB PO PRN (08:45)
[2018-04-13] MEDS: PREGABALIN 75 MG CAP PO SCH ×2 (09:00→17:00)
[2018-04-13] MEDS: METOPROLOL SUCCINATE 50 MG TAB XL PO SCH (09:00)
[2018-04-13] MEDS: FENOFIBRATE 145 MG TAB PO SCH (09:00)
[2018-04-13 10:10] VITALS: BP 127/58
[2018-04-13 12:03] VITALS: BP 117/56
[2018-04-13] MEDS: PROMETHAZINE 12.5MG/ NACL 0.9% 12.5 MG/50 ML BAG IV PRN (15:45)
[2018-04-13] MEDS: ZOLPIDEM TARTRATE 10 MG TAB PO SCH (21:00)
[2018-04-13 21:45] VITALS: BP 117/56
[2018-04-13] MEDS: SERTRALINE HCL 50 MG TAB PO SCH (21:45)
[2018-04-14] VITALS (7 sets, daily range): BP systolic 127–172; BP diastolic 58–82
[2018-04-14] MEDS: CEFTRIAXONE SOD 1 GM VIAL IV SCH ×2 (03:30→16:00)
[2018-04-14] MEDS: KCL 20MEQ/.9 SOD CHL 1,000 ML IV SCH ×2 (04:26→15:00)
[2018-04-14] MEDS: VANCOMYCIN 250MG/5ML ORAL SOLN PO SCH ×3 (05:12→17:54)
[2018-04-14] MEDS: METRONIDAZOLE 500MG/NS 100ML 100 ML IV SCH ×3 (05:12→17:54)
[2018-04-14 05:42] LABS: ANION GAP 10.3 mmol/L (8-16); BLOOD UREA NITROGEN 5 mg/dL (7-26); BUN/CREATININE RATIO 8 (6-25); CALCIUM 8.6 mg/dL (8.4-10.2); CARBON DIOXIDE 24 mmol/L (22-29); CHLORIDE 112 mmol/L (98-107); CREATININE, SERUM 0.65 mg/dL (0.57-1.11); EST GLOMERULAR FILTRATION RATE > 60 ML/MIN (60-); GLUCOSE 98 mg/dL (74-118); MAGNESIUM 1.6 MG/DL (1.3-2.1); PHOSPHORUS 2.1 MG/DL (2.3-4.7); POTASSIUM 3.3 mmol/L (3.5-5.1); SODIUM 143 mmol/L (136-145)
[2018-04-14] MEDS: FENOFIBRATE 145 MG TAB PO SCH (08:30)
[2018-04-14] MEDS: METOPROLOL SUCCINATE 50 MG TAB XL PO SCH (08:30)
[2018-04-14] MEDS: PREGABALIN 75 MG CAP PO SCH ×2 (08:30→18:15)
[2018-04-14] MEDS: ONDANSETRON HCL INJ 2 MG/ML VIAL IV PRN ×2 (08:40→18:05)
[2018-04-14] MEDS: HYDROMORPHONE 1MG/1ML INJ IV PRN ×2 (08:40→18:05)
[2018-04-14] MEDS: CHOLESTYRAMINE 4 GM PACKET PO SCH ×2 (13:10→17:54)
--- NOTE | 2018-04-18 00:24 | Discharge Summary ---
PRINCIPAL DIAGNOSES: 1. Recurrent Clostridium difficile colitis. 2. Sepsis. 3. Acute colitis. 4. Urinary tract infection. 5. Metabolic acidosis. 6. Overweight state. 7. Hypertriglyceridemia. 8. Hyperglycemia. 9. Hypertension. 10. Hypokalemia. 11. Abdominal pain. SECONDARY DIAGNOSIS: History of Clostridium difficile positive infection. CHIEF COMPLAINT: Diarrhea. HISTORY OF PRESENT ILLNESS: [id number] woman with diarrhea. Please refer to H and P for further details. HOSPITAL COURSE: Patient found to have sepsis present on admission, had acute colitis and history of C. difficile colitis. Testing here positive again. She was treated with antibiotics and continue therapy for at least 14 days. Had uterine fibroids, urinary tract infection that was treated with antibiotics. Had hypertriglyceridemia and hyperglycemia. Also had electrolyte derangement. Hemoglobin A1c 5.1, does not have diabetes. LDL was 51. Patient transitioned to LTAC facility for continued care. DISCHARGE MEDICATIONS: Per electronic medical record. FOLLOWUP: With primary care doctor in 1 week. CONDITION ON DISCHARGE: Stable and improving. DISCHARGE LOCATION: LTAC facility. ZIYAD DOMINGUEZ MD Job#: [id number]
--- NOTE | 2018-04-18 00:42 | Progress Note ---
DATE: April 13, 2018 TIME OF SERVICE: 8 a.m. OVERNIGHT: No events. REVIEW OF SYSTEMS: Denies any dizziness, chest pain, shortness of breath, fever, chills, sweats, headache vision changes, leg pain, or back pain. PHYSICAL EXAMINATION VITAL SIGNS: Reviewed. GENERAL: A tired-appearing woman resting in bed. HEENT: Anicteric. CARDIOVASCULAR: Normal S1, S2. Without murmurs. ABDOMEN: Soft, nondistended. Decreased tenderness in the abdomen is less. EXTREMITIES: No edema or calf tenderness. NEUROLOGIC: Alert and oriented times 3. Moving all extremities. SKIN: Dry. PSYCHIATRIC: Flat affect. LABS: Reviewed. MEDICATIONS: Reviewed. ASSESSMENT: A 57-year-old woman with 1. Sepsis. 2. Acute colitis. 3. History of Clostridium difficile colon infection. 4. Uterine fibroids. 5. Urinary tract infection. 6. Metabolic acidosis. 7. Overweight state. 8. Hypertriglyceridemia. 9. Hyperglycemia. 10. Hypertension. 11. Hypokalemia. 12. Abdominal pain. PLAN 1. Continue antibiotics. 2. Follow up C. diff testing. 3. Reduce oral intake. 4. Follow up labs in the morning. Job#: [id number]
== END 2018-04-14 21:32 | DRG 872 ==
LOC: ER 23:07 → ERHOLD 04-12 02:58 → MED/SURG2 04-12 03:47
PROVIDERS: ADMIT Internal Medicine; ATTEND Internal Medicine
DX: A41.9 Sepsis, unspecified organism (principal); N39.0 Urinary tract infection, site not specified; E87.2 Acidosis; A04.71 Enterocolitis due to Clostridium difficile, recurrent; D25.9 Leiomyoma of uterus, unspecified; E86.0 Dehydration; E66.3 Overweight; Z68.29 Body mass index [BMI] 29.0-29.9, adult; L40.9 Psoriasis, unspecified; G89.4 Chronic pain syndrome; M79.7 Fibromyalgia; F32.9 Major depressive disorder, single episode, unspecified; F41.9 Anxiety disorder, unspecified; E78.1 Pure hyperglyceridemia; E87.6 Hypokalemia; R73.9 Hyperglycemia, unspecified
CPT/HCPCS: 36415; 74177; 80048; 80053; 80061; 81001; 82150; 82550; 82553; 83036; 83690; 83735; 84100; 84484; 85025; 87040; 87086; 87493; 93005; 99284; J0696; J1170; J2405; J2550; J7030; Q9967